=== PATIENT | male | born 1955 | race Caucasian/White ===

== ENCOUNTER 2024-04-05 19:49 | Emergency (ER) | payer MEDICARE, OTHER ==
[~2024-04-05] VITALS: Ht 180.3 cm; Wt 72.7 kg
[2024-04-05 19:55] VITALS: BP 133/55; PULSE 69; RESP 16; TEMP 98.4
[2024-04-06] MEDS ORDERED: MALA59LO5 TP (00:09)
== END 2024-04-06 00:22 | disposition home or self-care (01) ==
LOC: EMS 19:54
DX: B86 Scabies (principal); R21 Rash and other nonspecific skin eruption; I10 Essential (primary) hypertension
CPT/HCPCS: 99281; Z7502